=== PATIENT | female | born 1965 | race Caucasian/White ===

== ENCOUNTER 2018-04-13 19:56 | Inpatient (IN) | payer OTHER ==
[~2018-04-13] VITALS: Ht 154.9 cm; Wt 69.8 kg
[2018-04-13] MEDS ORDERED: INSNOV SQ (20:08)
[2018-04-13] MEDS ORDERED: ASPI-556 PO (20:08)
[2018-04-13] MEDS ORDERED: GABA-531 PO (20:08)
[2018-04-13] MEDS ORDERED: LISI-662 PO (20:15)
[2018-04-13] MEDS ORDERED: ATOR40TA28 PO (20:15)
[2018-04-13] MEDS ORDERED: INSLAN SQ (20:15)
[2018-04-13] MEDS ORDERED: ASPI-1182 PO (20:15)
[2018-04-13] MEDS ORDERED: GLIP5TAB11 PO (20:16)
[2018-04-13] MEDS ORDERED: RANI150T7 PO (20:16)
[2018-04-13 20:18] LABS: GLUCOSE,POINT OF CARE 355 MG/DL (70-110)
[2018-04-13] MEDS ORDERED: INSULIN REGULAR, HUMAN 100 UNITS/ML IVP ONE (20:30)
[2018-04-13 20:54] LABS: BASOPHILS % (AUTO) 0.7 % (0.0-2.0); EOSINOPHILS % (AUTO) 1.9 % (1.0-6.0); HEMATOCRIT 33.7 % (36-46); HEMOGLOBIN 11.5 g/dL (12.0-16.0); LYMPHOCYTES # (AUTO) 2.3 K/uL (1.0-4.8); MEAN CORPUSCULAR HEMOGLOBIN 29.3 pg (26.0-34.0); MEAN CORPUSCULAR HGB CONC 34.1 G/dL (31.0-37.0); MEAN CORPUSCULAR VOLUME 86 fL (80-100); MONOCYTES # (AUTO) 0.6 K/uL (0.1-1.0); MONOCYTES % (AUTO) 8.4 % (2.0-9.0); NEUTROPHILS # (AUTO) 3.8 K/uL (1.8-7.7); PLATELET COUNT (AUTO) 305 K/uL (150-450); RED BLOOD CELL COUNT(AUTO) 3.92 MIL/uL (4.00-5.20); RED CELL DISTRIBUTION WIDTH 12.9 % (11.5-14.5)
[2018-04-13 21:11] LABS: ANION GAP 2 mmol/L (8-16); CALCIUM, TOTAL 8.9 mg/dL (8.8-10.5); CARBON DIOXIDE 32 mmol/L (22-29); CHLORIDE 101 mmol/L (98-107); CREATININE 0.86 mg/dL (0.60-1.30); GLOMERULAR FILTR. RATE CALC > 60 mL/min (>60); GLUCOSE,RANDOM 371 mg/dL (70-110); SODIUM SERUM 135 mmol/L (136-145); UREA NITROGEN, BLOOD 20 mg/dL (7-18)
[2018-04-13 21:17] LABS: ALANINE AMINOTRANSFERASE 23 U/L (12-78); ALBUMIN 2.9 g/dL (3.4-5.0); ALKALINE PHOSPHATASE 95 U/L (46-116); ASPARTATE AMINOTRANSFERASE 16 U/L (15-37); BILIRUBIN,TOTAL 0.1 mg/dL (0.1-1.0); TOTAL PROTEIN, SERUM 7.1 g/dL (6.4-8.2)
[2018-04-13 21:44] LABS: B-TYPE NATRIURETIC PEPTIDE 36 pg/mL (0-100)
[2018-04-13 21:59] LABS: INR 0.9 (0.9-1.1); PROTHROMBIN TIME 9.7 SEC (9.4-11.6)
[2018-04-13] MEDS ORDERED: NITROGLYCERIN 2% (1 GM=INCH) PACKET TP ONE (22:30)
[2018-04-13] MEDS ORDERED: NITROGLYCERIN 0.4 MG SUBLINGUAL TABLET #25 SL ONE (22:30)
[2018-04-13] MEDS ORDERED: ASPIRIN 81 MG CHEWABLE TABLET PO ONE (22:30)
[2018-04-13 22:37] LABS: GLUCOSE,POINT OF CARE 199 MG/DL (70-110)
[2018-04-13] MEDS ORDERED: CeFAZolin 1 GM/DEXTROSE 50 ML IV SCH (23:15)
[2018-04-13] MEDS ORDERED: IPRATROPIUM BROMIDE 0.5 MG/2.5 ML NEB SOLUTION NEB PRN (23:15)
[2018-04-13] MEDS ORDERED: ZOLPIDEM TARTRATE 10 MG TABLET PO PRN (23:15)
[2018-04-13] MEDS ORDERED: ONDANSETRON HCL 4 MG/2 ML VIAL IVP PRN (23:15)
[2018-04-13] MEDS ORDERED: MAGNESIUM HYDROXIDE SUSPENSION 30 ML UDCUP PO PRN (23:15)
[2018-04-13] MEDS ORDERED: DEXTROSE 50%-WATER 25 GM/50 ML SYRINGE IVP PRN (23:15)
[2018-04-13] MEDS ORDERED: ACETAMINOPHEN 325 MG TABLET PO PRN (23:15)
[2018-04-13] MEDS ORDERED: MORPHINE SULFATE 4 MG/ML SYRINGE IVP PRN (23:15)
[2018-04-13] MEDS ORDERED: HYDROCODONE/ACETAMINOPHEN 5-325 MG TABLET PO PRN (23:15)
[2018-04-13] MEDS ORDERED: SODIUM CHLORIDE 0.9% 500 ML IV ONE (23:31)
[2018-04-14] VITALS (7 sets, daily range): BP systolic 111–152; BP diastolic 61–85
[2018-04-14] MEDS: CeFAZolin SODIUM 1 GM in DEXTROSE 5%-WATER 10 ML IV SCH ×4 (00:03→23:15)
[2018-04-14] MEDS ORDERED: PNEUMOCOCCAL VACCINE POLYVALENT 0.5 ML VIAL [PPSV23] IM ONE (05:15)
[2018-04-14] MEDS: GlipiZIDE 5 MG TABLET PO SCH (06:07)
[2018-04-14] MEDS: NITROGLYCERIN 2% (1 GM=INCH) PACKET TP SCH ×4 (06:07→23:15)
[2018-04-14] MEDS: INSULIN LISPRO 100 UNITS/ML SQ PRN ×2 (06:08→17:45)
[2018-04-14 06:18] LABS: GLUCOMETER DEV NAME(LOC) 5N 1P; GLUCOSE,POINT OF CARE 238 MG/DL (70-110)
[2018-04-14 06:49] LABS: BASOPHILS % (AUTO) 0.5 % (0.0-2.0); EOSINOPHILS % (AUTO) 2.7 % (1.0-6.0); HEMATOCRIT 32.2 % (36-46); HEMOGLOBIN 11.4 g/dL (12.0-16.0); LYMPHOCYTES # (AUTO) 2.9 K/uL (1.0-4.8); LYMPHOCYTES % (AUTO) 37.8 % (22.0-44.0); MEAN CORPUSCULAR HEMOGLOBIN 30.1 pg (26.0-34.0); MEAN CORPUSCULAR HGB CONC 35.5 G/dL (31.0-37.0); MEAN CORPUSCULAR VOLUME 85 fL (80-100); MONOCYTES # (AUTO) 0.6 K/uL (0.1-1.0); MONOCYTES % (AUTO) 7.3 % (2.0-9.0); NEUTROPHILS % (AUTO) 51.7 % (40.0-70.0); PLATELET COUNT (AUTO) 292 K/uL (150-450); RED CELL DISTRIBUTION WIDTH 12.6 % (11.5-14.5)
[2018-04-14 07:25] LABS: ALANINE AMINOTRANSFERASE 21 U/L (12-78); ALBUMIN 2.6 g/dL (3.4-5.0); ALKALINE PHOSPHATASE 82 U/L (46-116); ANION GAP 4 mmol/L (8-16); ASPARTATE AMINOTRANSFERASE 15 U/L (15-37); BILIRUBIN,TOTAL 0.2 mg/dL (0.1-1.0); CALCIUM, TOTAL 8.8 mg/dL (8.8-10.5); CARBON DIOXIDE 29 mmol/L (22-29); CHLORIDE 104 mmol/L (98-107); CHOL/HDL RATIO 4.1 (3.9-5.7); CHOLESTEROL 285 mg/dL (131-200); CREATININE 0.69 mg/dL (0.60-1.30); GLOMERULAR FILTR. RATE CALC > 60 mL/min (>60); GLUCOSE,RANDOM 223 mg/dL (70-110); HDL CHOLESTEROL 70 mg/dL (40-60); LDL CHOL (CALC.) 188 mg/dL (0-130); POTASSIUM 4.5 mmol/L (3.5-5.1); SODIUM SERUM 137 mmol/L (136-145); TOTAL PROTEIN, SERUM 6.4 g/dL (6.4-8.2); TRIGLYCERIDES 136 mg/dL (15-150); UREA NITROGEN, BLOOD 18 mg/dL (7-18)
[2018-04-14] MEDS: RANITIDINE HCL 150 MG TABLET PO SCH ×2 (09:23→20:34)
[2018-04-14] MEDS: PANTOPRAZOLE SODIUM 40 MG/VIAL IVP SCH (09:23)
[2018-04-14] MEDS: DOCUSATE SODIUM 100 MG CAPSULE PO SCH ×2 (09:23→20:34)
[2018-04-14] MEDS: LISINOPRIL 20 MG TABLET PO SCH (09:23)
[2018-04-14] MEDS: ASPIRIN 81 MG CHEWABLE TABLET PO SCH (09:23)
[2018-04-14] MEDS: GABAPENTIN 300 MG CAPSULE PO SCH (09:24)
[2018-04-14] MEDS: INSULIN GLARGINE,HUM.REC.ANLOG 100 UNITS/ML SQ SCH ×2 (09:31→20:42)
[2018-04-14 15:52] LABS: GLUCOMETER DEV NAME(LOC) 5N 1P; GLUCOSE,POINT OF CARE 117 MG/DL (70-110)
[2018-04-14] MEDS ORDERED: ATORVASTATIN CALCIUM 40 MG TABLET PO SCH (21:00)
[2018-04-15 04:11] VITALS: BP 133/72
[2018-04-15] MEDS: GlipiZIDE 5 MG TABLET PO SCH (05:54)
[2018-04-15] MEDS: NITROGLYCERIN 2% (1 GM=INCH) PACKET TP SCH ×2 (05:54→12:20)
[2018-04-15 06:55] LABS: BASOPHILS % (AUTO) 0.5 % (0.0-2.0); EOSINOPHILS % (AUTO) 1.9 % (1.0-6.0); HEMATOCRIT 31.6 % (36-46); HEMOGLOBIN 11.1 g/dL (12.0-16.0); LYMPHOCYTES # (AUTO) 2.5 K/uL (1.0-4.8); LYMPHOCYTES % (AUTO) 32.3 % (22.0-44.0); MEAN CORPUSCULAR HEMOGLOBIN 30.2 pg (26.0-34.0); MEAN CORPUSCULAR HGB CONC 35.2 G/dL (31.0-37.0); MEAN CORPUSCULAR VOLUME 86 fL (80-100); MONOCYTES # (AUTO) 0.6 K/uL (0.1-1.0); MONOCYTES % (AUTO) 8.3 % (2.0-9.0); NEUTROPHILS # (AUTO) 4.4 K/uL (1.8-7.7); PLATELET COUNT (AUTO) 300 K/uL (150-450); RED BLOOD CELL COUNT(AUTO) 3.69 MIL/uL (4.00-5.20)
[2018-04-15 07:25] VITALS: BP 126/76
[2018-04-15 07:26] LABS: ALANINE AMINOTRANSFERASE 19 U/L (12-78); ALBUMIN 2.5 g/dL (3.4-5.0); ALKALINE PHOSPHATASE 80 U/L (46-116); ANION GAP 4 mmol/L (8-16); ASPARTATE AMINOTRANSFERASE 14 U/L (15-37); BILIRUBIN,TOTAL 0.2 mg/dL (0.1-1.0); CARBON DIOXIDE 29 mmol/L (22-29); CHLORIDE 105 mmol/L (98-107); CREATININE 0.89 mg/dL (0.60-1.30); GLOMERULAR FILTR. RATE CALC > 60 mL/min (>60); GLUCOSE,RANDOM 171 mg/dL (70-110); POTASSIUM 4.9 mmol/L (3.5-5.1); SODIUM SERUM 138 mmol/L (136-145); TOTAL PROTEIN, SERUM 6.2 g/dL (6.4-8.2); UREA NITROGEN, BLOOD 25 mg/dL (7-18)
[2018-04-15] MEDS: CeFAZolin SODIUM 1 GM in DEXTROSE 5%-WATER 10 ML IV SCH (07:58)
[2018-04-15] MEDS: PANTOPRAZOLE SODIUM 40 MG/VIAL IVP SCH (08:02)
[2018-04-15] MEDS: RANITIDINE HCL 150 MG TABLET PO SCH (08:03)
[2018-04-15] MEDS: DOCUSATE SODIUM 100 MG CAPSULE PO SCH (08:03)
[2018-04-15] MEDS: GABAPENTIN 300 MG CAPSULE PO SCH (08:03)
[2018-04-15] MEDS: LISINOPRIL 20 MG TABLET PO SCH (08:03)
[2018-04-15] MEDS: ASPIRIN 81 MG CHEWABLE TABLET PO SCH (08:03)
[2018-04-15] MEDS: INSULIN GLARGINE,HUM.REC.ANLOG 100 UNITS/ML SQ SCH (08:10)
[2018-04-15] MEDS ORDERED: MAGNESIUM CITRATE 300 ML ORAL SOLUTION PO ONE (09:15)
[2018-04-15 11:42] VITALS: BP 129/77
[2018-04-15] MEDS ORDERED: DSS100 PO (12:07)
[2018-04-15] MEDS: INSULIN LISPRO 100 UNITS/ML SQ PRN (12:24)
[2018-04-15 15:43] LABS: GLUCOMETER DEV NAME(LOC) 5N 1P; GLUCOSE,POINT OF CARE 165 MG/DL (70-110)
[2018-04-15 15:43] LABS: GLUCOMETER DEV NAME(LOC) 5N 1P; GLUCOSE,POINT OF CARE 226 MG/DL (70-110)
[2018-04-15 17:13] LABS: GLUCOMETER DEV NAME(LOC) 5N 2S; GLUCOSE,POINT OF CARE 79 MG/DL (70-110)
[2018-04-15 17:13] LABS: GLUCOMETER DEV NAME(LOC) 5N 2S; GLUCOSE,POINT OF CARE 184 MG/DL (70-110)
== END 2018-04-15 13:30 | disposition home or self-care (01) | DRG 203 ==
LOC: EMS 19:56 → 5N 23:01
PROVIDERS: ADMIT Hospitalist; ATTEND Hospitalist
PROC: 3E0234Z Introduction of Serum, Toxoid and Vaccine into Muscle, Percutaneous Approach (ICD-10-PCS; principal; 2018-04-14)
DX: R07.89 Other chest pain (principal); E44.0 Moderate protein-calorie malnutrition; E11.65 Type 2 diabetes mellitus with hyperglycemia; I69.351 Hemiplegia and hemiparesis following cerebral infarction affecting right dominant side; D64.9 Anemia, unspecified; I10 Essential (primary) hypertension; G89.29 Other chronic pain; I70.0 Atherosclerosis of aorta; E78.00 Pure hypercholesterolemia, unspecified; K21.9 Gastro-esophageal reflux disease without esophagitis; Z79.4 Long term (current) use of insulin; Z79.82 Long term (current) use of aspirin; Z79.899 Other long term (current) drug therapy; Z23 Encounter for immunization; Z68.29 Body mass index [BMI] 29.0-29.9, adult
CPT/HCPCS: 70450; 90471; 93005; 93306; 96374; 99285; C9113; J0690; J1815; J7040; J7060